=== PATIENT | female | born 1985 | race African-American/Black ===

== ENCOUNTER 2016-12-22 21:32 | Emergency (ER) | payer OTHER ==
[~2016-12-22] VITALS: Ht 160 cm; Wt 59.0 kg
[2016-12-22 21:50] VITALS: BP 106/59
--- NOTE | 2016-12-22 21:55 | PHYS DOC ---
Past Medical History Past Medical History: No Pertinent History Past Surgical History: , Tubal ligation, Other Additional Past Surgical Histo: hernia repair x2 Alcohol Use: Occasionally Drug Use: None Adult General Chief Complaint Chief Complaint: ABDOMINAL PAIN HPI HPI Patient is a 31 year old female who presents with complaints of pelvic cramping and vaginal spotting and some discharge that has been going on for a week. Patient did not report abdominal pain to the M.D. Patient has been sexually active, unknown status. Patient denies any fevers, chills, rashes, dysuria, back pain. She says she vomited a couple times nonbloody. No sick contacts. Past surgical history significant for 4 C-sections and 2 hernia repairs Review of Systems Review of Systems Constitutional: Denies fever or chills [] Eyes: Denies change in visual acuity, redness, or eye pain [] HENT: Denies nasal congestion or sore throat [] Respiratory: Denies cough or shortness of breath [] Cardiovascular: No chest pain GI: yes abdominal cramping, nausea, . No vomiting, bloody stools or diarrhea [] : Denies dysuria or hematuria. Brownish vaginal discharge Musculoskeletal: Denies back pain or joint pain [] Integument: Denies rash or skin lesions [] Neurologic: Mild headache. No Focal weakness or sensory changes [] Endocrine: Denies polyuria or polydipsia [] Allergies Allergies Allergies Coded Allergies Type Severity Reaction Last Updated Verified No Known Drug Allergies 06/08/13 No Physical Exam Physical Exam Constitutional: Well developed, well nourished, no acute distress, non-toxic appearance. [] HENT: Normocephalic, atraumatic, oropharynx moist, no oral exudates, nose normal. [] Eyes: EOMI, conjunctiva normal, no discharge. [] Neck: Normal range of motion, no tenderness, supple, no stridor. No LAD, no meningeal signs Cardiovascular:Heart rate regular rhythm, no murmur. Equal pulses, normal perfusion Lungs & Thorax: Bilateral breath sounds clear to auscultation. No tachypnea Abdomen: Bowel sounds normal, soft, no tenderness, no masses, no pulsatile masses. No signs of infection, no signs of hernia. : External exam is normal. Os is closed, no lesions of the cervix, small, white discharge, no CMT, no adnexal tenderness or masses Skin: Warm, dry, no erythema, no rash. [] Back: No tenderness, no CVA tenderness. [] Extremities: No tenderness, no cyanosis, no clubbing, ROM intact, no edema. No signs of DVT Neurologic: Alert and oriented X 3, normal motor function, ambulates in the ED with normal gait and without assistance, no focal deficits noted. [] Psychologic: Affect normal, judgement normal, mood normal. [] Current Patient Data Vital Signs Vital Signs Date Time Temp Pulse Resp B/P (MAP) Pulse Ox O2 Delivery O2 Flow Rate FiO2 12/22/16 21:50 99.1 75 16 106/59 (75) 99 Room Air 99.1 Lab Values Laboratory Tests Test 12/22/16 21:01 12/22/16 21:50 POC Urine HCG, Qualitative Hcg negative (Negative) Urine Collection Type Void Urine Color Yellow Urine Clarity Cloudy Urine pH 5.5 Urine Specific [place] 1.025 Urine Protein Negative mg/dL (NEG-TRACE) Urine Glucose (UA) Negative mg/dL (NEG) Urine Ketones (Stick) Negative mg/dL (NEG) Urine Blood Negative (NEG) Urine Nitrite Negative (NEG) Urine Bilirubin Negative (NEG) Urine Urobilinogen Dipstick 1.0 mg/dL (0.2 mg/dL) Urine Leukocyte Esterase Small (NEG) Urine RBC 0 /HPF (0-2) Urine WBC 5-10 /HPF (0-4) Urine Squamous Epithelial Cells Many /LPF Urine Bacteria Moderate /HPF (0-FEW) Urine Mucus Marked /LPF Microbiology 12/22/16 Wet Prep - Final, Complete EKG EKG [] Radiology/Procedures Radiology/Procedures [] Course & Med Decision Making Course & Med Decision Making Pertinent Labs and Imaging studies reviewed. (See chart for details) Patient wishes to leave AMA because she needs to go to work. Patient is aware of lab results that are pending but still just the Aleve. Patient is in no distress, lives in the ED with normal gait without assistance and in no distress. Patient has medical decision capacity. [] Dragon Disclaimer Dragon Disclaimer This electronic medical record was generated, in whole or in part, using a voice recognition dictation system. Departure Departure Impression: Primary Impression: Pelvic cramping Disposition: AGAINST MEDICAL ADVICE Condition: STABLE Referrals: NO PCP (PCP) Patient Instructions: Discharge Against Medical Advice, Pelvic Exam Additional Instructions: Please follow with your doctor in 2 days for recheck and reevaluation. Please return to the ED immediately if you change your mind or your symptoms worsen or new concerning symptoms develop Derek NYE MD Dec 22, 2016 21:55
[2016-12-22 22:00] LABS: BILIRUBIN,URINE NEGATIVE (NEG); GLUCOSE,URINE NEGATIVE (NEG); NITRITE,URINE NEGATIVE (NEG); PH,URINE 5.5; PROTEIN,URINE NEGATIVE (NEG-TRACE)
[2016-12-22 22:06] LABS: BACTERIA,URINE MODERATE /HPF (0-FEW); RBC,URINE 0 /HPF (0-2); SQUAMOUS EPITHELIAL CELL,UR MANY /LPF
== END 2016-12-22 23:10 | disposition left against medical advice (07) ==
LOC: ER 21:32
DX: R10.2 Pelvic and perineal pain (principal); Z98.51 Tubal ligation status; Z98.890 Other specified postprocedural states
CPT/HCPCS: 81001; 81025; 87086; 87491; 87591; 99284; Q0111

== ENCOUNTER 2017-05-16 23:47 | Emergency (ER) | payer SELFPAY ==
[~2017-05-16] VITALS: Ht 160 cm; Wt 74.4 kg
[~2017-05-16 23:47] MED LIST: DICY10CA53 PO; ONDA4TAB10 PO
[2017-05-16 23:55] VITALS: BP 98/54
--- NOTE | 2017-05-17 00:11 | PHYS DOC ---
Past Medical History Past Medical History: No Pertinent History Past Surgical History: , Tubal ligation, Other Additional Past Surgical Histo: hernia repair x2 Alcohol Use: Occasionally Drug Use: None Adult General Chief Complaint Chief Complaint: ABDOMINAL PAIN HPI HPI Patient is a 31 year old Female presents to the emergency department stating that she has having right lower quadrant abdominal pain. Patient states that she is having what she feels like [place] contractions. She states that they are and 8/10. She has not taken anything for the pain and discomfort. She denies any vaginal discharge denies any urinary frequency urgency pain with urination. She states 2 days ago she did have some nausea and vomiting. She denies any diarrhea. She does state she has some left back pain and discomfort. Patient denies any dysuria. Patient states that she's had a tubal ligation in the past. Patients [facility] 04/19 Review of Systems Review of Systems Constitutional: Denies fever or chills [] Eyes: Denies change in visual acuity, redness, or eye pain [] HENT: Denies nasal congestion or sore throat [] Respiratory: Denies cough or shortness of breath [] Cardiovascular: No additional information not addressed in HPI [] GI: left lower abdominal pain, denies nausea, vomiting, bloody stools or diarrhea [] : Denies dysuria or hematuria [] Musculoskeletal: Denies back pain or joint pain [] Integument: Denies rash or skin lesions [] Neurologic: Denies headache, focal weakness or sensory changes [] Endocrine: Denies polyuria or polydipsia [] All other systems were reviewed and found to be within normal limits, except as documented in this note. Current Medications Current Medications Current Medications Medications (Trade) Dose Ordered Sig/Sabrina Start Time Stop Time Status Last Admin Dose Admin Ceftriaxone Sodium (Rocephin Im) 250 mg 1X ONCE 05/17/17 01:15 05/17/17 01:16 DC Ibuprofen (Motrin) 800 mg 1X ONCE 05/17/17 01:00 05/17/17 01:01 DC 05/17/17 00:52 800 MG Allergies Allergies Allergies Coded Allergies Type Severity Reaction Last Updated Verified No Known Drug Allergies 06/08/13 No Physical Exam Physical Exam Constitutional: Well developed, well nourished, no acute distress, non-toxic appearance. [] HENT: Normocephalic, atraumatic, bilateral external ears normal, oropharynx moist, no oral exudates, nose normal. [] Eyes: PERRLA, EOMI, conjunctiva normal, no discharge. [] Neck: Normal range of motion, no tenderness, supple, no stridor. [] Cardiovascular:Heart rate regular rhythm, no murmur [] Lungs & Thorax: Bilateral breath sounds clear to auscultation [] Abdomen: Bowel sounds normal, soft, left lower quadrant tenderness, no masses, no pulsatile masses. [] Skin: Warm, dry, no erythema, no rash. [] Back: No tenderness, no CVA tenderness. [] Extremities: No tenderness, no cyanosis, no clubbing, ROM intact, no edema. [] Neurologic: Alert and oriented X 3, normal motor function, normal sensory function, no focal deficits noted. [] Psychologic: Affect normal, judgement normal, mood normal. [] Pelvic exam completed with Vanesa RN at bedside. Patient with minimal bloody discharge noted in the vaginal vault with foul odor noted. Patient with CMT and left adnexal tenderness noted. Current Patient Data Vital Signs Vital Signs Date Time Temp Pulse Resp B/P (MAP) Pulse Ox O2 Delivery O2 Flow Rate FiO2 05/16/17 23:55 98.3 86 20 98/54 (69) 99 Room Air 98.3 Lab Values Laboratory Tests Test 05/17/17 00:05 05/17/17 00:12 Urine Collection Type Unknown Urine Color Marsha Urine Clarity Cloudy Urine pH 6.0 Urine Specific [place] >=1.030 Urine Protein Negative mg/dL (NEG-TRACE) Urine Glucose (UA) Negative mg/dL (NEG) Urine Ketones (Stick) Trace mg/dL (NEG) Urine Blood Large (NEG) Urine Nitrite Negative (NEG) Urine Bilirubin Small (NEG) Urine Urobilinogen Dipstick 1.0 mg/dL (0.2 mg/dL) Urine Leukocyte Esterase Moderate (NEG) Urine RBC Occ /HPF (0-2) Urine WBC 1-4 /HPF (0-4) Urine Squamous Epithelial Cells Occ /LPF Urine Bacteria Many /HPF (0-FEW) Urine Mucus Marked /LPF POC Urine HCG, Qualitative Hcg negative (Negative) Microbiology 05/17/17 Wet Prep - Final, Complete Microbiology 05/17/17 Wet Prep - Final, Complete EKG EKG [] Radiology/Procedures Radiology/Procedures [] Course & Med Decision Making Course & Med Decision Making Pertinent Labs and Imaging studies reviewed. (See chart for details) Patients wet prep was positive for BV. Patient was provided with results as well as treatment plan for BV and PID. Patient then states her upper abdominal area feels bloated. Patient was offered Labs, CBC, CMP, amylase and Lipase with CT scan of abd and pelvis with contrast, patient refused to have theses test completed. Patient will be discharged home in stable condition. Patient was offered medications for STD in patient refused. She will be provided with Rocephin injection here in the emergency department she will be sent home on doxycycline and flagyl. Urine was positive for UTI she will be placed on Bactrim DS for the next 3 days. Recommended plenty of fluids such as water, cranberry juice, avoid cranberry juice cocktail, carbonated beverages, citrus fruits and alcohol as these are considered irritants to the bladder. Patient was provided with signs and symptoms to return to the emergency department all questions and concerns have been answered at the bedside. Patient agrees with discharge instructions, treatment regimen and followup recommendations. Patient refused to have Rocephin inject because the medication cook. Patient was provided with information that Rocephin is the medication recommended by CDC for the treatment. Patient was provided with risk and benefits of receiving the injection. [] Dragon Disclaimer Dragon Disclaimer This electronic medical record was generated, in whole or in part, using a voice recognition dictation system. Departure Departure Impression: Primary Impression: Bacterial vaginosis Additional Impressions: PID (acute pelvic inflammatory disease) UTI (urinary tract infection) Disposition: 01 HOME, SELF-CARE Condition: STABLE Referrals: NO PCP (PCP) Patient Instructions: Bacterial Vaginosis, [id number], Pelvic Inflammatory Disease, [id number], Urinary Tract Infection, [id number] Additional Instructions: Activity as tolerated Medication as prescribed Tylenol or Ibuprofen for fever, chills or generalized body aches Drink plenty of fluids Followup with primary care provider in 7-10 days Return to emergency department as needed for signs and symptoms that become worse. Scripts Sulfamethoxazole/Trimethoprim (BACTRIM DS TABLET) 1 Each Tablet 1 TAB PO BID for 3 Days, #6 TAB Prov: TOMASA SCHERER APRN 05/17/17 Doxycycline Hyclate (DOXYCYCLINE HYCLATE) 100 Mg Capsule 1 CAP PO BID for 14 Days, #28 CAP Prov: TOMASA SCHERER APRN 05/17/17 Metronidazole (FLAGYL) 500 Mg Tablet 1 TAB PO BID, #14 TAB Prov: TOMASA SCHERER APRN 05/17/17 Problem Qualifiers Additional Impressions: UTI (urinary tract infection) Urinary tract infection type: site unspecified Hematuria presence: without hematuria Qualified Codes: N39.0 - Urinary tract infection, site not specified TOMASA SCHERER APRN May 17, 2017 00:11
[2017-05-17 00:31] LABS: BILIRUBIN,URINE SMALL (NEG); GLUCOSE,URINE NEGATIVE (NEG); NITRITE,URINE NEGATIVE (NEG); PROTEIN,URINE NEGATIVE (NEG-TRACE)
[2017-05-17] MEDS ORDERED: METR500T PO (00:54)
[2017-05-17] MEDS ORDERED: DOXY100C2 PO (00:54)
[2017-05-17 00:56] LABS: BACTERIA,URINE MANY /HPF (0-FEW); RBC,URINE OCC /HPF (0-2); SQUAMOUS EPITHELIAL CELL,UR OCC /LPF
[2017-05-17] MEDS ORDERED: IBUPROFEN 800 MG TABLET. PO ONE (01:00)
[2017-05-17] MEDS ORDERED: SULF1TAB24 PO (01:08)
[2017-05-17] MEDS ORDERED: cefTRIAXone IM 250 MG VIAL IM ONE (01:15)
== END 2017-05-17 01:12 | disposition home or self-care (01) ==
LOC: ER 23:47
DX: N76.0 Acute vaginitis (principal); B96.89 Other specified bacterial agents as the cause of diseases classified elsewhere; N73.9 Female pelvic inflammatory disease, unspecified; N39.0 Urinary tract infection, site not specified; Z98.51 Tubal ligation status
CPT/HCPCS: 81001; 81025; 87086; 87491; 87591; 99284; Q0111

== ENCOUNTER → 2017-06-05 | Outpatient (CLI) | payer OTHER | END | disposition home or self-care (01) | LOC: KCIC US 08:47 | DX: N91.2 Amenorrhea, unspecified (principal); I86.2 Pelvic varices | CPT/HCPCS: 76830; 76856 ==

== ENCOUNTER 2017-10-04 10:12 | Emergency (ER) | payer OTHER ==
[2017-10-04 10:29] LABS: URINE HCG POC HCG NEGATIVE (Negative)
[2017-10-04 10:40] LABS: BILIRUBIN,URINE NEGATIVE (NEG); CLARITY,URINE CLEAR; COLOR,URINE YELLOW; GLUCOSE,URINE NEGATIVE (NEG); NITRITE,URINE NEGATIVE (NEG); PROTEIN,URINE NEGATIVE (NEG-TRACE)
[2017-10-04 10:56] LABS: BACTERIA,URINE FEW /HPF (0-FEW); RBC,URINE 0 /HPF (0-2); SQUAMOUS EPITHELIAL CELL,UR MANY /LPF
[2017-10-04] MEDS: ONDANSETRON ODT 4 MG TAB.RAPDIS. PO (11:47)
[2017-10-04] MEDS: IBUPROFEN 800 MG TABLET. PO (11:47)
== END 2017-10-04 11:51 | disposition home or self-care (01) ==
LOC: ER 11:51
DX: N39.0 Urinary tract infection, site not specified (principal); Z98.51 Tubal ligation status; Z98.890 Other specified postprocedural states
CPT/HCPCS: 81001; 81025; 99283; Q0162